=== PATIENT | male | born 1965 | race Caucasian/White ===

== ENCOUNTER 2021-09-11 11:20 | Inpatient (IN) | payer OTHER ==
[2021-09-11] VITALS (19 sets, daily range): BP systolic 93–128; BP diastolic 45–68
[~2021-09-11] VITALS: Ht 162.6 cm; Wt 105.1 kg
--- NOTE | ~2021-09-11 | EMS ---
[facility] [address] [place] [address] EMS Patient Care Report Name: ANGEL LUIS PUGH Room #: PRE M.R.#: [id number] Admission: Attend Phys: Discharge: Date of : 67 Report #: [id number] THIS REPORT FOR: //name// Report Transmitted: 09/11/2021 10:48 EMS Care Summary [place], [place]/[facility] Incident [id number] @ 09/11/2021 10:41 Incident Location [address] [place] [address] Patient ANGEL LUIS PUGH Male, 55 Years 1965 Patient Address [address] [place] [id number] Patient History Diabetes,Hypertension (HTN),Morbid Obesity,Urinary Tract Infection (UTI),Schizophrenia,Paraplegia, Patient Allergies Aspirin,Penicillin allergy,Darvocet, Chief Complaint SHORTNESS OF AIR Disposition Transported No Lights/[place] Dispatch Reason Breathing Problem Transported To [facility] Narrative M29 ARRIVES TO FIND 55 Y/O M PT COMPLAINING THAT HE HAS FELT SHORT OF AIR SINCE WEDNESDAY. ASSESSMENTS AND TREATMENTS NOTED. PT MOVED TO COT VIA DRAWSHEET METHOD. PT MOVED OT AMBULANCE. PT TRANSPORTED. [facility] [address] [place] [address] EMS Patient Care Report Name: ANGEL LUIS PUGH [id number] Admission: Attend Phys: Discharge: Date of : 67 Report #: [id number] M29 ARRIES AT DESTINATION. PT MOVED TO ROOM IN ED. PT MOVED TO BED IN ROOM VIA DRAWSHEET METHOD. PT CARE TRANSFERRED. M29 RETURNS TO SERVICE. Initial Vitals @11:06P: 112,BP: 118/69,CO: 19,SpO2: 97, @11:04P: 113,R: 24,BP: 130/81,Pain: 0/10,GCS: 15,Glucose: 134,CO: 20,SpO2: 95,Revised Trauma: 12, @11:12P: 110,R: 22,BP: 103/51,Pain: 0/10,GCS: 15,CO: 18,SpO2: 96,Revised Trauma: 12, Assessments @10:49MENTAL:Person Oriented,Time Oriented,Place Oriented,Event Oriented,SKIN:HEENT:LUNG SOUNDS:ABDOMEN:PELVIS//GI:EXTREMITIES:Right Leg: Paralysis,Left Leg: Paralysis,PULSE:NEURO:@11:19MENTAL:No Abnormalities,SKIN:No Abnormalities,HEENT:Head/Face: No Abnormalities,Eyes: No Abnormalities,Neck/Airway: No Abnormalities,LUNG SOUNDS:General: No Abnormalities,Left Upper: No Abnormalities,Right Upper: No Abnormalities,Left Lower: No Abnormalities,Right Lower: No Abnormalities,ABDOMEN:General: No Abnormalities,Left Upper: No Abnormalities,Right Upper: No Abnormalities,Left Lower: No Abnormalities,Right Lower: No Abnormalities,PELVIS//GI:No Abnormalities,EXTREMITIES:Left Arm: No Abnormalities,Right Arm: No Abnormalities,Left Leg: No Abnormalities,Right Leg: No Abnormalities,PULSE:NEURO:No Abnormalities, Impression Shortness of breath Procedures @PTAAlbuterol - 2.5 Milligrams (mg) - NebulizedResponse: Improved@PTAOxygen FlowRate: 6 Device: Nebulizer Response: ImprovedSucceeded@11:033-Lead ECGResponse: UnchangedSucceeded@PTAOxygen FlowRate: 3 Device: Nasal Cannula (NC) Response: ImprovedSucceeded@11:12Solu-Medrol - 125 Milligrams (mg) - Intravenous (IV)Response: Unchanged@11:12Albuterol - 2.5 Milligrams (mg) - NebulizedResponse: Improved Timeline FOOD PREPARER,Albuterol - 2.5 Milligrams (mg) - Nebulized,Response: Improved FOOD PREPARER,Oxygen FlowRate: 6 Device: Nebulizer Response: ImprovedSucceeded, FOOD PREPARER,Oxygen FlowRate: 3 Device: Nasal Cannula (NC) Response: ImprovedSucceeded, 10:40,Call Received 10:40,Dispatch Notified 10:41,Dispatched 10:47,En Route 10:48,On Scene 10:48,At Patient 10:48,Depart Scene [address] [address] EMS Patient Care Report Name: ANGEL LUIS PUGH Room #: PRE [facility].#: [id number] Admission: Attend Phys: Discharge: Date of : 67 Report #: [id number] 11:03,3-Lead ECG,Response: UnchangedSucceeded, 11:04,BP: 130/81 M,PULSE: 113,RR: 24 R,SPO2: 95 Ox,ETCO2: ,B,PAIN: 0,GCS: 15, 11:06,BP: 118/69 M,PULSE: 112,RR: R,SPO2: 97 Ox,ETCO2: ,BG: ,PAIN: ,GCS: , 11:12,Solu-Medrol - 125 Milligrams (mg) - Intravenous (IV),Response: Unchanged 11:12,Albuterol - 2.5 Milligrams (mg) - Nebulized,Response: Improved 11:12,BP: 103/51 M,PULSE: 110,RR: 22 R,SPO2: 96 Ox,ETCO2: ,BG: ,PAIN: 0,GCS: 15, 11:26,At Destination 11:26,Call Closed Disclaimer v1.1 Copyright 2020 [employer] This EMS Care Summary contains data elements from the applicable legal record (which may be displayed differently). It is designed to provide pertinent information for the following purposes: continuity of care, clinical quality, and state data reporting. The complete legal record is available to ED staff and administrators of the receiving hospital in [employer]'s Patient Tracker. All data is provided "as is."
[~2021-09-11 11:20] MED LIST: AMITRIPTYLINE H25 M2; ARGINAID POWDE1 EACH; BACLOFEN 10MG T10 MG PO; BISACODYL SUPP10 MG; COLACE100 MG PO; DULOXETINE HCL60 MG PO; ENULOSE10 GM/15 M; FENTANYL PATCH75 MCG; FUROSEMIDE 40 M40 MG PO; KEFLEX500 MG PO; KEPPRA XR500 MG; KLOR-CON 1010 MEQ; LISINOPRIL20 MG; MAPAP325 MG; MIRALAX17 GM; NAPROSYN500 MG; NEURONTIN 300M300 M2 PO; NORCO5 PO; POTASSIUM20; PRAZOSIN 1 MG CA1 M1 PO; RISPERDAL 1 MG T1 MG PO; SKELAXIN 800 M800 M1; THEREMS1 EAC1; VALIUM5 MG; VITAMIN C500 M1; WELLBUTRIN XL300 MG PO
[2021-09-11 11:36] LABS: BASOPHILS 0.1 % (0.0-2.0); EOSINOPHILS 1.1 % (0.0-3.0); HEMATOCRIT 20.8 % (42.0-52.0); RBC 2.56 mil/uL (4.50-6.00); WBC 12.4 thou/uL (4.0-11.0)
[2021-09-11 11:38] LABS: ABSOLUTE NEUTROPHILS 10.7 thou/uL (1.4-8.2); LYMPHOCYTES 5.5 % (24.0-44.0); MCH 23.7 pg (26.0-34.0); MCHC 29.1 g/dL (28.0-37.0); MCV 81.2 fL (80.0-100.0); PLATELET COUNT 381 thou/uL (150-400); POLYS 86.3 % (36.0-66.0); RDW 20.9 % (10.5-14.5)
[2021-09-11 11:46] LABS: HEMOGLOBIN 6.1 gm/dL (14.0-18.0)
[2021-09-11 11:52] LABS: CALCIUM 8.6 mg/dL (8.5-10.1); CREATININE 1.4 mg/dL (0.7-1.3)
[2021-09-11 11:53] LABS: POTASSIUM 4.2 mmol/L (3.5-5.1)
[2021-09-11 12:02] LABS: ALBUMIN 2.6 g/dL (3.4-5.0); TOTAL BILIRUBIN 0.8 mg/dL (0.2-1.0); TOTAL PROTEIN 7.1 g/dL (6.4-8.2)
[2021-09-11 12:27] LABS: URINE BLOOD NEGATIVE (Negative); URINE COLOR YELLOW; URINE GLUCOSE-RANDOM* TRACE (Negative); URINE KETONES NEGATIVE (Negative); URINE PROTEIN (DIPSTICK) 2+ (Negative); URINE SPECIFIC GRAVITY 1.025 (1.005-1.035)
[2021-09-11 12:28] LABS: URINE CLARITY CLOUDY; URINE LEUKOCYTES-REFLEX 2+ (Negative); URINE NITRITE-REFLEX POSITIVE (Negative)
[2021-09-11 12:31] LABS: BE(vivo) 1.9 mmol/L (-2 to +3); HCO3 26.8 mmol/L (22.0-26.0); PCO2 43.3 mmHg (35.0-45.0); PO2 107.5 mmHg (80.0-100.0); pH 7.409 (7.360-7.450); sO2 97.9 % (92.0-98.0)
[2021-09-11 12:38] LABS: ICTOTEST (BILI CONFIRMATORY) Negative (Negative); URINE BILIRUBIN NEGATIVE (Negative)
[2021-09-11 13:13] LABS: BACTERIA-REFLEX >30 Many /HPF (None Seen); SQUAMOUS None Seen /LPF (0-3); URINE RBC None Seen /HPF (NONE SEEN)
[2021-09-11 13:14] LABS: AMORPHOUS URATES Moderate /LPF (None Seen); COARSE GRANULAR CASTS 0-3 Few /LPF (None Seen)
[2021-09-11 13:21] LABS: ANISOCYTOSIS 1+; HYPOCHROMASIA 2+
[2021-09-11 14:29] LABS: INR 1.05; PROTIME 11.4 Seconds (10.5-12.1)
--- NOTE | 2021-09-11 16:28 | NUR ---
A RIGHT UPPER ARM PICC WAS PLACED PER HOSPITAL POLICY AFTER A BEDSIDE TIMEOUT WAS COMPLETED. THE BRACHIAL VEIN WAS CANNULATED AND DIALATED BUT UNABLE TO ADVANCE THE CATHETER INTO THE SVC AFTER MULTIPLE ATTEMPTS THE RIGHT CEPHALIC VEIN WAS CANNULATED. THE INTERNAL WIRE WAS CONTAMINATED SO AN ADDITIONAL CVC WIRE WAS OPENED AND ATTEMPTED BUT THE WIRE DIAMETER WAS LARGER THAN THE NEEDLE. A 2ND PICC KIT WAS USED AND THE BRACHIAL VEIN WAS CANNULTED. THE LINE WAS TRIMMED TO 40CM AND THE PICC ADVANCED WITHOUT DIFFICULTY. THE LINE WAS CONFIRMED AT THE CAJ WITH SHERLOCK 3CG AT 2CM EXTERNAL. THE LINE WAS SECURED AND RELEASED FOR USE
[2021-09-11 16:31] LABS: BE(vivo) 2.2 mmol/L (-2 to +3); HCO3 27.5 mmol/L (22.0-26.0); PCO2 47.8 mmHg (35.0-45.0); PO2 102.1 mmHg (80.0-100.0); pH 7.378 (7.360-7.450); sO2 97.5 % (92.0-98.0)
--- NOTE | 2021-09-11 17:59 | NUR ---
RN CALLED BROTHER FANI TO TALK ABOUT PT TO CHARGE THE ADMISSION HISTORY. BROTHER DID NOT ANSWER. RN TRIED A COUPLE TIMES AT DIFFERENT TIMES. WILL NOTIFY HEREDITARY CANCER PROGRAM COORDINATOR RN AND SEE IF HE WILL ANSWER FOR THEM.
--- NOTE | 2021-09-11 18:00 | NUR ---
PT RESTING. PT SOMETIMES HARD TO AROUSE. RN STERNAL RUBBED PATIENT FOR HIM TO WAKE UP. ONCE PT WAS AWAKE PT WAS ALERT AND ORIENTED X 4. PT 1ST UNIT OF BLOOD WAS FINISHED AT 1800. RN CALL ED TO LET THEM KNOW TO CHART IT DUE TO [employer] NOT LETTING ME CHART ON AN ED INTERVENTION SINCE THEY STARTED THE UNIT OF BLOOD. WILL CONTINUE TO MONITOR
[2021-09-11 20:30] LABS: HEMATOCRIT 22.8 % (42.0-52.0)
[2021-09-12] VITALS (30 sets, daily range): BP systolic 91–123; BP diastolic 41–60
[2021-09-12 06:11] LABS: HEMATOCRIT 23.4 % (42.0-52.0); HEMOGLOBIN 7.3 gm/dL (14.0-18.0); MCH 25.8 pg (26.0-34.0); MCHC 31.2 g/dL (28.0-37.0); MCV 82.6 fL (80.0-100.0); RBC 2.83 mil/uL (4.50-6.00); RDW 19.2 % (10.5-14.5); WBC 6.1 thou/uL (4.0-11.0)
[2021-09-12 06:34] LABS: CREATININE 1.4 mg/dL (0.7-1.3); POTASSIUM 3.6 mmol/L (3.5-5.1)
--- NOTE | 2021-09-12 07:11 | EKG ---
[address] [address] ELECTROCARDIOGRAM REPORT Name: SHAUNAPEREZ AMADOANGEL LUIS LEE Room #: 238- ADM IN M.R.#: [id number] Admission: 09/11/21 Attend Phys: Josef Raya MD Discharge: Date of : 67 Report #: [id number] [facility] ED Test Date: 2021-09-11 Test Time: 11:25:54 Pat Name: ANGEL LUIS PUGH Department: Room: 238 P Gender: M Training And Development Professional: unknown : 1965 Requested By: Brigitte Cornell Order Number: [id number] MD: Raphael Justice Measurements Intervals [place] Rate: 109 P: 55 VT: 135 QRS: 44 QRSD: 84 T: 60 QT: 362 QTc: 488 Interpretive Statements Sinus tachycardia Borderline T wave abnormalities Baseline wander in lead(s) V4,V5,V6 Compared to ECG 03/18/2007 10:54:58 T-wave abnormality now present Sinus rhythm no longer present Electronically Signed On 09-12-2021 7:10:59 CDT by Raphael Justice [email or web address] <ELECTRONICALLY SIGNED> By: Raphael Justice MD, FACC 09/12/21 0710 1125 1125 Raphael Justice MD, [facility] /EPI
--- NOTE | 2021-09-12 10:11 | 2DMMODE ---
[facility] [address] [place] [address] 2 D/M-MODE ECHOCARDIOGRAM Name: ANGEL LUIS PUGH [place] Room #: 238-P ADM IN M.R.#: [id number] Admission: 09/11/21 Attend Phys: Josef Raya MD Discharge: Date of : 67 Report #: [id number] THIS REPORT FOR: cc: Physician not on staff Physician not on staff Rocky Castro MD ~ APPROVED REPORT Study performed: 09/12/2021 09:34:37 EXAM: Comprehensive 2D, Doppler, and color-flow Echocardiogram Patient Location: ICU Room #: 238 Status: routine BSA: 2.09 HR: 75 bpm BP: 95/58 mmHg Rhythm: NSR Other Information Study Quality: Good Indications Respiratory failure. CHF. Hx: HTN HLP, paraplegia. 2D Dimensions IVSd: 11.01 (7-11mm) LVOT Diam: 19.62 (18-24mm) LVDd: 50.57 mm PWd: 9.80 (7-11mm) Ascending Ao: 29.28 (22-36mm) LVDs: 29.49 (25-40mm) Left Atrium: 38.42 (27-40mm) Aortic Root: 30.66 mm Volumes Left Atrial Volume (Systole) Single Plane 4CH: 49.04 mL Single Plane 2CH: 58.07 mL LA ESV Index: 27.00 mL/m2 Aortic Valve AoV Peak Jaison.: 2.13 m/s AO Peak Gr.: 18.20 mmHg LVOT Max P.72 mmHg LVOT Max V: 1.56 m/s PURNIMA Vmax: 2.21 cm2 [facility] [address] [place] [address] 2 D/M-MODE ECHOCARDIOGRAM Name: ANGEL LUIS PUGH [place] Room #: 238-P [facility].#: [id number] Admission: 09/11/21 Attend Phys: Paul Petit Discharge: Date of : 67 Report #: [id number] Mitral Valve E/A Ratio: 1.2 MV Decel. Time: 218.18 ms MV E Max Jaison.: 1.34 m/s MV A Jaison.: 1.15 m/s MV PHT: 63.27 ms IVRT: 72.66 ms Pulmonary Valve PV Peak Jaison.: 1.23 m/s PV Peak Gr.: 6.09 mmHg Pulmonary Vein P Vein S: 0.59 m/s P Vein A: 0.37 m/s P Vein D: 0.61 m/s P Vein A Dur.: 121.1 msec P Vein S/D Ratio: 0.97 Tricuspid Valve TR Peak Jaison.: 2.73 m/s RAP Estimate: 15.00 mmHg TR Peak Gr.: 30.00 mmHg PA Pressure: 45.00 mmHg Left Ventricle The left ventricle is normal size. There is normal LV segmental wall motion. There is normal left ventricular wall thickness. Left ventricular systolic function is normal. LVEF is 55-60%. Right Ventricle The right ventricle is normal size. The right ventricular systolic function is normal. Atria The left atrium size is normal. The right atrium size is normal. Aortic Valve The aortic valve is normal in structure. No aortic regurgitation is present. There is no aortic valvular stenosis. Mitral Valve The mitral valve is normal in structure. Mild mitral regurgitation. No evidence of mitral valve stenosis. Tricuspid Valve The tricuspid valve is normal in structure. Mild tricuspid regurgitation. Estimated PAP is 40-45mmHg. [facility] [address] [address] 2 D/M-MODE ECHOCARDIOGRAM Name: ANGEL LUIS PUGH [place] Room #: 238-P [facility] IN .R.#: [id number] Admission: 09/11/21 Attend Phys: Paul Petit Discharge: Date of : 67 Report #: [id number] Pulmonic Valve The pulmonary valve is normal in structure. There is no pulmonic valvular regurgitation. Great Vessels The aortic root is normal in size. The ascending aorta is normal in size. IVC is dilated and collapses <50% with inspiration. Pericardium Smalll pericardial effusion. <Conclusion> The left ventricle is normal size. There is normal left ventricular wall thickness. LVEF is 55-60%. The right ventricle is normal size. The left atrium size is normal. The aortic valve is normal in structure. The mitral valve is normal in structure. Mild mitral regurgitation. The tricuspid valve is normal in structure. Mild tricuspid regurgitation. Estimated PAP is 40-45mmHg. The pulmonary valve is normal in structure. The aortic root is normal in size. Smalll pericardial effusion. <ELECTRONICALLY SIGNED> By: Rocky Castro MD 09/12/21 1011 1011 1011 Rocky Castro MD /INF
[2021-09-12] MEDS ORDERED: CELEBREX 200 M200 M1 PO (12:00)
[2021-09-12] MEDS ORDERED: LORZONE375 MG PO (12:00)
[2021-09-12] MEDS ORDERED: FENOFIBRATE160 MG PO (12:02)
[2021-09-12] MEDS ORDERED: IRON325 PO (12:03)
[2021-09-12] MEDS ORDERED: DAKIN'S473 M2 TOP ×2 (12:05)
[2021-09-12] MEDS ORDERED: LORATIDINE 10 M10 M1 PO (12:07)
[2021-09-12] MEDS ORDERED: GLEEVEC400 MG PO (12:07)
[2021-09-12] MEDS ORDERED: KEPPRA 500 MG500 MG PO (12:07)
[2021-09-12] MEDS ORDERED: MUCINEX600 MG PO (12:10)
[2021-09-12] MEDS ORDERED: TOPROL XL25 MG PO (12:10)
[2021-09-12] MEDS ORDERED: NOVOLOG100 UNIT/M SUBQ (12:13)
[2021-09-12] MEDS ORDERED: ZYPREXA 10 MG T10 MG PO (12:14)
[2021-09-12] MEDS ORDERED: ZOFRAN4 MG PO (12:14)
[2021-09-12] MEDS ORDERED: PROTONIX40 M2 PO (12:15)
[2021-09-12] MEDS ORDERED: ROXICODONE5 M2 PO (12:15)
[2021-09-12] MEDS ORDERED: K-DUR 20 MEQ T20 MEQ PO (12:16)
[2021-09-12] MEDS ORDERED: PHENAZOPYRIDIN200 M2 PO (12:16)
[2021-09-12] MEDS ORDERED: PREGABALIN50 MG PO (12:17)
[2021-09-12] MEDS ORDERED: ARGINAID POWDE1 EACH PO (12:18)
[2021-09-12] MEDS ORDERED: ZOLOFT 50 MG TA50 MG PO (12:18)
[2021-09-12] MEDS ORDERED: SSD CREAM 1% 5050 GM TOP (12:19)
[2021-09-12] MEDS ORDERED: AAA-MED REC COMPLETE PO (12:22)
--- NOTE | 2021-09-12 16:25 | NUR ---
Discussed during los and unit rounds. Covid test going to be repeated. Isolation precaution. lives at [facility]. Called his family listed at contact, no answer. Vent and nutritional support. Will cont. following as needed for dc needs.
--- NOTE | 2021-09-12 17:11 | NUR ---
PT APPEARS TO BE PROGRESSING TOWARDS D/C GOALS. NO RECTAL BLEEDING DURING SHIFT, NO S/S OF BLOOD IN LARGE HARD STOOL BALLS. PT A&OX4, RESTING COMFORTABLY MOST OF THE DAY, COVID TEST REPEAED TODAY DUE TO PERSISTENT PRODUCTIVE COUGH, COVID NEG. URINE REMAINS BRIGHT ORANGE IN COLOR WHICH PT STATES IS NORMAL FOR HIM. REMAINS AFEBRILE, TOLERATING MECH SOFT DIET WELL. WILL CONTINUE TO FOLLOW POC.
[2021-09-13] VITALS (9 sets, daily range): BP systolic 121–145; BP diastolic 55–74
--- NOTE | 2021-09-13 05:48 | NUR ---
Pt transferred to room 205 with belongings.
[2021-09-13 05:50] LABS: CALCIUM 8.3 mg/dL (8.5-10.1); CREATININE 1.3 mg/dL (0.7-1.3)
--- NOTE | 2021-09-13 06:46 | NUR ---
RECIEVED PATIENT FROM THE ICU AT AROUND 0548H.ON NASAL CANNULA AT 3LPM SATURATING WELL.WITH SUPRAPUBIC CATHETHER INTACT.WITH RIGHT FOREARM PICC LINE INTACT.NOT IN PAIN OR DISTRESS.VITALS TAKEN.KEPT COMFORTABLE IN BED.ALL NEEDS ATTENDED
--- NOTE | 2021-09-13 18:01 | NUR ---
PT RESTING COMFORTABLY. PT AFEBRILE, ADEQUATE UOP (THROUGH SUPRA-PUBIC CATH), NO BM, FAIR APPETITE. RU-PICC IN PLACE, 1 PORT NOT DRAWING BLOOD (IV ACCESS AWARE), INTERNAL PAIN PUMP IMPLANTED IN LLQ. PT HAS BEEN THOUROUGHLY UPDATED AND EDUCATED ON PT CONDITION AND POC. PT SLOWLY PROGRESSING TOWARDS POC.
[2021-09-13 21:13] LABS: HEMATOCRIT 25.1 % (42.0-52.0); HEMOGLOBIN 8.1 gm/dL (14.0-18.0)
--- NOTE | 2021-09-14 03:37 | NUR ---
ASSESSED AT START OF SHIFT. PT RESTING IN BED. REPOSITIONED FOR COMFORT. Q2 TURNS. OXYCODONE GIVEN FOR PAIN. PICC LINE IN PLACE. IV ABX GIVEN AND LAB DRAW DONE. SUPRAPUBIC CATH INTACT AND DRAINING. PT ON 2.5L O2 AND SUCTIONS SELF. GET BX AND COUGH NOTED. Q6 BSG CHECKED WILL CONT WITH POC TILL EOS.
[2021-09-14 04:43] VITALS: BP 153/62
[2021-09-14 07:25] VITALS: BP 141/67
[2021-09-14 11:21] VITALS: BP 146/73
[2021-09-14 15:14] VITALS: BP 163/77
[2021-09-14 19:40] VITALS: BP 159/74
--- NOTE | 2021-09-15 03:38 | NUR ---
PT RESTING COMFORTABLE WITH REQUENT TURNS AND REPOSITIONING NEEDED,DRESSINGS REMAIN INTACT, PRN PAIN MEDS GIVEN FOR CHRONIC LE PAIN, CATHETER WITH AMA URINE OUTPUT, REFUSED DINNER OR ANY SNACK LAST EVENING BG AT 00WAS 104, NOC DESAT STUDY TONIGHT, WILL CON'T TO MONITOR PER PPOC.
[2021-09-15 04:30] VITALS: BP 150/74
[2021-09-15 09:22] VITALS: BP 136/66
--- NOTE | 2021-09-15 11:46 | NUR ---
ASSUMED CARE OF PT @0700. PT IS RESTING IN BED AT TITME OF SHIFT CHANGE. PT IS A&O X 4 UPON ASSESSMENT AND MEDICATION ADMINISTRATION. PT IS CALM AND COMPLIATN WITH MEDICATIONS WHOLE WITH WATER. PT REPORTS 10/10 BACK PAIN AT THIS TIME. PT GIVEN SCHEDULED PAIN MEDICATION. PT STATES THAT SHE IS SUPPOSED TO GO TO "IGNITE" TODAY. SOCIAL WORK IS WORING ON [employer]ING AT THIS TIME. WILL CONTINUE TO MONITOR.
[2021-09-15] MEDS ORDERED: IPRAT-ALBUT 0.5-3 ML INH (12:05)
[2021-09-15] MEDS ORDERED: PREDNISONE 20 M20 M1 PO (12:05)
[2021-09-15 12:29] VITALS: BP 165/90
[2021-09-15] MEDS ORDERED: DOXYCYCLINE 10100 MG PO (14:41)
[2021-09-15 16:00] VITALS: BP 159/55
--- NOTE | 2021-09-15 18:43 | NUR ---
Patient to dc to [facility] today, Faxed orders, chart copied. Sp with patient who reports agreeable to return to [facility]. Reports mother and brother listed have both . he reports he cannot reach his other brother his phone disconnected. He repors noone to contact regarding return to facility. Noone but Anish Walsh knows he is at [facility]. [facility] stretcher van for [phone]. Notified facility of time as [facility] needed to arrange. Updated Rn. No further needs
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
== END 2021-09-15 19:00 | DRG 193 ==
LOC: ER 11:20 → EROBS 13:56 → 2N 13:56 → ICU 15:26 → 2N 09-13 05:51
PROVIDERS: Emergency Medicine; Internal Medicine Pulmonary Disease; Nurse Practitioner; ADMIT Hospitalist; ATTEND Hospitalist
DX: J18.9 Pneumonia, unspecified organism (principal); L89.324 Pressure ulcer of left buttock, stage 4; J96.01 Acute respiratory failure with hypoxia; G93.41 Metabolic encephalopathy; E43 Unspecified severe protein-calorie malnutrition; J81.0 Acute pulmonary edema; L89.314 Pressure ulcer of right buttock, stage 4; T83.518A Infection and inflammatory reaction due to other urinary catheter, initial encounter; C91.00 Acute lymphoblastic leukemia not having achieved remission; N17.9 Acute kidney failure, unspecified; G82.20 Paraplegia, unspecified; E78.00 Pure hypercholesterolemia, unspecified; F17.220 Nicotine dependence, chewing tobacco, uncomplicated; D64.9 Anemia, unspecified; I50.9 Heart failure, unspecified; I11.0 Hypertensive heart disease with heart failure; G89.29 Other chronic pain; F20.9 Schizophrenia, unspecified; Z66 Do not resuscitate; E11.9 Type 2 diabetes mellitus without complications; N30.90 Cystitis, unspecified without hematuria; E66.9 Obesity, unspecified; L89.610 Pressure ulcer of right heel, unstageable; T14.8XXA Other injury of unspecified body region, initial encounter; G47.33 Obstructive sleep apnea (adult) (pediatric); Y83.8 Other surgical procedures as the cause of abnormal reaction of the patient, or of later complication, without mention of misadventure at the time of the procedure; Z93.3 Colostomy status; Z90.49 Acquired absence of other specified parts of digestive tract; Z88.6 Allergy status to analgesic agent; Z88.0 Allergy status to penicillin; Z88.8 Allergy status to other drugs, medicaments and biological substances; Z79.891 Long term (current) use of opiate analgesic; Z86.14 Personal history of Methicillin resistant Staphylococcus aureus infection; Z68.39 Body mass index [BMI] 39.0-39.9, adult
CPT/HCPCS: 10078; 10081; 10797; 27000